=== PATIENT | female | born 1960 | race Caucasian/White ===

== ENCOUNTER 2018-10-04 10:21 | Emergency (ER) | payer OTHER ==
[~2018-10-04] VITALS: Ht 157.5 cm; Wt 78.9 kg
[2018-10-04 10:26] VITALS: BP 169/78; PULSE 89; RESP 18; Ht 157.5 cm; Wt 78.9 kg
[2018-10-04] MEDS ORDERED: KETOROLAC 60 MG INJ IM STA (11:37)
[2018-10-04] MEDS ORDERED: ACETAMINOPHEN 500 MG TAB PO STA (11:37)
[2018-10-04] MEDS ORDERED: CYCLOBENZAPRINE 10 MG TAB PO ONE (12:00)
[2018-10-04] MEDS ORDERED: DEXAMETHASONE 10 MG/ML 1 ML INJ IM ONE (12:00)
[2018-10-04] MEDS ORDERED: IBUP800T48 PO (13:11)
[2018-10-04] MEDS ORDERED: CYCL10TA7 PO (13:11)
--- NOTE | 2018-10-04 14:15 | ERD ---
ER Documentation Chief Complaint Chief Complaint LEFT LEG PAIN X 5 MOS, FELL 5 MOS AGO HPI History of Present Illness: 57-year-old female who reports a past medical history of diabetes coming in today due to left leg pain is been present for 5 months after a fall. Patient reports that pain is been intermittent but has noticed increased exacerbation of pain in the past 2 to 3 days. Patient reports pain starts at left buttocks and radiates down to left thigh. At home pharmacological/nonpharmacological treatment for symptoms: Denies Denies social concerns; Denies recent foreign travel ROS All systems reviewed and are negative except as per history of present illness. Medications Home Meds Active Scripts Cyclobenzaprine Hcl* (Cyclobenzaprine Hcl*) 10 Mg Tablet, 10 MG PO TID for MUSCLE PAIN/MUSCLE SPASM, #15 TAB Prov:THUY GARZA NP 10/04/18 Ibuprofen* (Motrin*) 800 Mg Tab, 800 MG PO Q6H PRN for PAIN AND/OR INFLAMMATION, #30 TAB Prov:THUY GARZA [address] [facility] 10/04/18 Allergies Allergies: Coded Allergies: No Known Allergy (Unverified , 10/04/18) PMhx/Soc Medical and Surgical Hx: pt denies Medical Hx, pt denies Surgical Hx Hx Alcohol Use: No Hx Substance Use: No Hx Tobacco Use: No Smoking Status: Never smoker FmHx Family History: No diabetes, No coronary disease Physical Exam Vitals Vital Signs Date Temp Pulse Resp B/P (MAP) Pulse Ox O2 O2 Flow FiO2 Time Delivery Rate 10/04/18 98.1 89 18 169/78 99 10:26 (108) Physical Exam Const: No acute distress, afebrile Head: Atraumatic Eyes: Normal Conjunctiva ENT: Normal External Ears, Nose and Mouth. Neck: Full range of motion. No meningismus. Resp: Clear to auscultation bilaterally Cardio: Regular rate and rhythm, no murmurs Abd: Soft, non tender, non distended. No guarding, no masses, no rigidity Skin: No petechiae or rashes Back: No midline or flank tenderness Ext: No cyanosis, or edema; LLE: Tenderness palpation along left buttocks to left posterior lower extremity Neur: Awake and alert x3, speaking in clear sentences, no focal deficits or facial asymmetry Psych: Normal Mood and Affect Results 24 hrs Current Medications Medications Dose Sig/Missy Start Time Status Last (Trade) Ordered Route PRN Stop Time Admin Dose Reason Admin 8 mg ONCE ONCE 10/04/18 DC 10/04/18 Dexamethasone IM 12:00 11:47 (Decadron) 10/04/18 12:01 Ketorolac 60 mg ONCE STAT 10/04/18 DC 10/04/18 Tromethamine IM 11:37 11:47 (Toradol) 10/04/18 11:39 1,000 mg ONCE STAT 10/04/18 DC 10/04/18 Acetaminophen PO 11:37 11:48 (Tylenol 10/04/18 11:39 Tab) 10 mg ONCE ONCE 10/04/18 DC 10/04/18 Cyclobenzapri PO 12:00 11:47 ne HCl 10/04/18 12:01 (Flexeril) Procedures/MDM ED COURSE: ED course includes a thorough examination and history. The patient was stable throughout ED course. I kept the patient and/or family informed of laboratory and diagnostic imaging results throughout the ED course. MEDICATIONS GIVEN IN ER: Ketorolac, cyclobenzaprine, dexamethasone Patient tolerated medication well with no adverse reactions. Patient reported improvement in pain. MEDICAL DECISION MAKING: Low suspicion for life-threatening medical emergency. Low suspicion for orthopedic emergency that requires hospitalization or immediate surgical intervention. Low suspicion for neurological emergency. Otherwise healthy patient presenting with constellation of symptoms likely representing sciatica as characterized by history, physical exam findings . Patient reassessment @ 1315: Patient reports decrease in pain. Patient hemodynamically stable. No respiratory distress, otherwise relatively well appearing and nontoxic. Disposition given. Patient educated on diagnoses, prescriptions, follow-up care, return precautions. Strict return precautions given for worsening condition; questions answered discharge. Patient verbalizes understanding of discharge instructions. PRESCRIPTIONS FOR HOME: Cyclobenzaprine, ibuprofen DISPOSITION: DISCHARGE At this time, patient is stable for discharge and outpatient management. I have instructed the patient to follow-up with his/her primary care physician in 1-2 days. I have discussed with the patient the possibility of needing to see a specialist for further workup and imaging studies if symptoms persist. I have instructed the patient to promptly return to the ER for any new or worsening symptoms including increased pain, fever, nausea, vomiting, weakness or LOC. The patient and/or family expressed understanding of and agreement with this plan. All questions were answered. Home care instructions were provided. DISCLAIMER: Inadvertent spelling and grammatical errors are likely due to EHR/dictation software use and do not reflect on the overall quality of patient care. Also, please note that the electronic time recorded on this note does not necessarily reflect the actual time of the patient encounter. Departure Diagnosis: Primary Impression: Sciatica, left side Condition: Stable Patient Instructions: Understanding Sciatica Ref[facility] Usted se poe hecho un examen mdico de control que le indica que no est en jerry condicin que requiera tratamiento urgente en el Departamento de Emergencia. Un estudio ms profundo y el tratamiento de aguillon condicin pueden esperar sin ningn riesgo hasta que usted sea atendida/o en el consultorio de aguillon mdico o jeryr clnica. Es responsabilidad suya arreglar jerry debbie para el seguimiento del cary. MANEJO DE CONDICIONES NO URGENTES EN EL FUTURO 1) Si usted tiene un mdico de atencin primaria: Usted debera llamar a aguillon mdico de atencin primaria antes de venir al departamento de emergencia. Despus de las horas de consultorio, aguillon doctor o aguillon asociado/a est disponible por telfono. El mdico o enfermero de mauro en el servicio telefnico puede asesorarle por morenita medio para atender el problema, o cary contrario se puede programar jerry debbie. 2) Si usted no tiene un mdico de atencin primaria: Llame al mdico o clnica de referencia que aparece abajo yonis las horas de consultorio para hacer jerry debbie para que le vean. CLINICAS: [facility] 426 [phone] [facility] 383 [phone] [facility] [phone] [place] [id number] [phone] [facility] 160 [phone] [address] [facility] [phone] [facility] () [place] se ope hecho un examen mdico de control que le indica que no est en jerry condicin que requiera tratamiento urgente en el Departamento de Emergencia. Un estudio ms profundo y el tratamiento de aguillon condicin pueden esperar sin ningn riesgo hasta que ted sea atendida/o en el consultorio de aguillon mdico o jerry clnica. Es responsabilidad suya arreglar jerry debbie para el seguimiento del cary. MANEJO DE CONDICIONES NO URGENTES EN EL FUTURO 1) Si usted tiene un mdico de atencin primaria: Usted debera llamar a aguillon mdico de atencin primaria antes de venir al departamento de emergencia. Despus de las horas de consultorio, aguillon doctor o aguillon asociado/a est disponible por telfono. El mdico o enfermero de mauro en el servicio telefnico puede asesorarle por morenita medio para atender el problema, o cary contrario se puede programar jerry debbie. 2) Si usted no tiene un mdico de atencin primaria: Llame al mdico o condado institucions de referencia que aparece abajo yonis las horas de consultorio para hacer jerry debbie para que le vean. SI USTED NO PUEDE PAGAR PARA SANDEEP UN MEDICO puede ir a: [facility] [id number] [place] [address] [facility] [address] [place] [address] [facility] [address] [place] [address] [facility] [address] [place] [address] Additional Instructions: Muchas milagros por permitirnos participar en aguillon cuidado. Aguillon demarco y seguridad es nuestra principal prioridad en [facility]. Es importante leer todas las instrucciones de sigrid y la educacin que se proporcionan en aguillon paquete de sigrid. Llame a aguillon mdico de atencin primaria MAANA para jerry debbie yonis los prximos 2 a 4 gonzales y lleve toda la informacin y los medicamentos recetados. Llene las recetas y siga exactamente las instrucciones de la etiqueta. --Ibuprofeno es un medicamento que ayuda con el dolor / inflamacin. En la dosis de 600 a 800 mg, esto ayudar con la inflamacin / hinchazn. [place] cade medicamento segn las indicaciones. -Ciclobenzaprina aries relajante muscular; tome cade medicamento diariamente segn lo prescrito para la prxima semana para ayudar con aguillon espasmo muscular. No opere maquinaria pesada mientras est tomando cade medicamento; Puede hacerte somnoliento.- Si los sntomas empeoran y aguillon proveedor no est disponible, regrese inmediatamente al Departamento de Emergencias. ---- Thank you very much for allowing us to participate in your care. Your health and safety is our top priority at [facility]. It is important to read all discharge instructions and education provided in your discharge packet. Call your primary care doctor TOMORROW for an appointment during the next 2-4 days and bring all the information and medications prescribed. Have prescriptions filled and follow precisely the directions on the label. --Ibuprofen is a medication that will help with pain/inflammation. At the dosage of 600 to 800 mg, this will help with inflammation/swelling. Take this medication as prescribed. -Cyclobenzaprine as a muscle relaxer; take this medication daily as prescribed for the next week to help with your muscle spasm. Do not operate heavy machinery while taking this medication; It may make you drowsy.- If the symptoms get worse and your provider is unavailable, [facility] to [facility]. THUY GARZA NP Oct 04, 2018 14:14
== END 2018-10-04 13:26 | disposition home or self-care (01) ==
LOC: FTE 10:21
DX: M54.32 Sciatica, left side (principal); E11.9 Type 2 diabetes mellitus without complications
CPT/HCPCS: 96372; J1100; J1885; Z7502; Z7610